=== PATIENT | female | born 1980 ===

== ENCOUNTER 2020-12-09 10:25 | Emergency (ER) | payer MEDICAID ==
[~2020-12-09] VITALS: Ht 160 cm; Wt 54.5 kg
[2020-12-09 10:38] VITALS: BP 109/70
== END 2020-12-09 11:15 | disposition home or self-care (01) ==
LOC: ER 10:26
DX: R06.02 Shortness of breath (principal); Z20.822 Contact with and (suspected) exposure to COVID-19; R11.0 Nausea; J45.909 Unspecified asthma, uncomplicated
CPT/HCPCS: 36415; 99283; U0003; U0005